=== PATIENT | male | born 1945 | race Caucasian/White ===

== ENCOUNTER 2019-12-03 06:26 | Day surgery (SDC) | payer BC ==
[2019-12-03] MEDS ORDERED: BALANCED SALT IRRIG SOLN COMB1 500 ML, EPINEPHRINE-PF 1:1000 0.5 MG IO ONE ×2 (07:00)
[2019-12-03] MEDS ORDERED: CYCLOPENTOLATE 1% OPHT DROP 2 ML BOTTLE ONE (07:05)
[2019-12-03] MEDS ORDERED: TROPICAMIDE 1% OPHT DROP 3 ML BOTTLE ONE (07:05)
[2019-12-03] MEDS ORDERED: KETOROLAC 0.5% OPHT DROP 3 ML BOTTLE ONE (07:05)
[2019-12-03] MEDS ORDERED: CIPROFLOXACIN 0.3% OPHT DROP 2.5 ML BOTTLE ONE (07:05)
[2019-12-03] MEDS ORDERED: PHENYLEPHRINE 2.5% OPHT DROP 2 ML BOTTLE ONE (07:05)
[2019-12-03] MEDS ORDERED: MOXIFLOXACIN HCL 3 ML OPHT DROPS ONE (07:40)
[2019-12-03] MEDS ORDERED: ACETYLCHOLINE CHLORIDE 1% OPHT 1 EA KIT ONE (07:41)
[2019-12-03] MEDS ORDERED: TETRACAINE HCL 0.5% OPHT DROP 2 ML BOTTLE ONE (07:41)
[2019-12-03] MEDS ORDERED: HYALURONATE SODIUM 12.8 MG/0.8 ML DISP.SYRIN ONE (07:41)
[2019-12-03] MEDS ORDERED: HYALURONIDASE,OVINE 200 UNITS/ML VIAL ONE (07:41)
[2019-12-03] MEDS ORDERED: NEO/POLYMYX B/DEXAME OPHT OINT 3.5 GM TUBE ONE (07:41)
[2019-12-03] MEDS ORDERED: BUPIVACAINE PF 0.5% 30 ML VIAL ONE (07:41)
[2019-12-03] MEDS ORDERED: TIMOLOL MALEATE 0.5% OPHT DROP 5 ML BOTTLE ONE (07:41)
[2019-12-03] MEDS ORDERED: LIDOCAINE-MPF 2% 5 ML VIAL ONE (07:41)
[2019-12-03] MEDS ORDERED: BALANCED SALT IRRIG SOLN COMB2 15 ML IRRIG.SOLN ONE (07:41)
[2019-12-03] MEDS ORDERED: FENTANYL CITRATE 100 MCG/2 ML AMPUL ONE (07:58)
[2019-12-03] MEDS ORDERED: TRYPAN BLUE 0.5 ML DISP.SYRIN ONE (08:09)
[2019-12-03] MEDS ORDERED: BALANCED SALT IRRIG SOLN COMB1 500 ML ONE (08:42)
[2019-12-03] MEDS ORDERED: PHENYLEPHRINE 10% OPHT DROP 5 ML BOTTLE OP ONE (09:15)
== END 2019-12-03 10:50 | disposition home or self-care (01) ==
LOC: DS 06:26
PROVIDERS: ATTEND Ophthalmology
DX: H25.12 Age-related nuclear cataract, left eye (principal); I51.7 Cardiomegaly; E78.5 Hyperlipidemia, unspecified; M19.90 Unspecified osteoarthritis, unspecified site; F32.9 Major depressive disorder, single episode, unspecified; F41.9 Anxiety disorder, unspecified; N40.0 Benign prostatic hyperplasia without lower urinary tract symptoms; Z79.899 Other long term (current) drug therapy; Z79.01 Long term (current) use of anticoagulants; Z90.49 Acquired absence of other specified parts of digestive tract; Z98.890 Other specified postprocedural states
CPT/HCPCS: 36415; 66984; 71045; 82962; 84132; 85730; J0171; J3010; J3471; J3490 ×2; J7120; J7321; Q9968; V2632; A4663